=== PATIENT | female | born 1985 | race Hispanic/Latino ===

== ENCOUNTER → 2017-07-10 | Outpatient (CLI) | payer OTHER ==
[~2017-07-10] MED LIST: FERR-82 PO; IOPAMIDOL-370 100 ML VIAL IV ONE; ISOVUE-370 50ML VIAL IV ONE; RIVA20TA PO
== END | disposition home or self-care (01) ==
LOC: RAH 08:48
PROVIDERS: ATTEND Family Medicine
DX: I51.7 Cardiomegaly (principal); J90 Pleural effusion, not elsewhere classified; M47.895 Other spondylosis, thoracolumbar region
CPT/HCPCS: 71275; Q9967 ×2

== ENCOUNTER → 2017-07-19 | Outpatient (CLI) | payer OTHER ==
[~2017-07-19] MED LIST changes: -IOPAMIDOL-370 100 ML VIAL IV ONE; -ISOVUE-370 50ML VIAL IV ONE
== END | disposition home or self-care (01) ==
LOC: RAH 09:46
PROVIDERS: ATTEND Family Medicine
DX: I26.99 Other pulmonary embolism without acute cor pulmonale (principal)
CPT/HCPCS: 93306

== ENCOUNTER 2017-08-02 21:29 | Observation (INO) | payer OTHER ==
[~2017-08-02] VITALS: Ht 177.8 cm; Wt 99.8 kg
[2017-08-02 22:17] LABS: BASOPHILS % (AUTO) 0.3 % (0.0-5.0); EOSINOPHILS % (AUTO) 0.2 % (0.0-8.0); HEMATOCRIT 29.4 % (36-48); LYMPHOCYTES % (AUTO) 26.9 % (21.0-51.0); MEAN CORPUSCULAR HEMOGLOBIN 26.5 pg (27.0-33.0); MEAN CORPUSCULAR HGB CONC 32.8 g/dL (32.0-36.0); MEAN CORPUSCULAR VOLUME 80.7 fL (79-99); MONOCYTES % (AUTO) 7.6 % (3.0-13.0); PLATELET COUNT (AUTO) 306 K/uL (130-400); RED BLOOD CELL COUNT(AUTO) 3.64 MIL/uL (4.00-5.50); RED CELL DISTRIBUTION WIDTH 18.2 % (11.0-15.5); WHITE BLOOD COUNT (AUTO) 8.4 K/uL (4.8-10.8)
[2017-08-02 22:26] LABS: POTASSIUM 3.3 mmol/L (3.5-5.1)
[2017-08-02 22:28] LABS: INR 1.16 (0.85-1.15); PARTIAL THROMBOPLASTIN TIME 29.4 SEC (26.3-35.5); PROTHROMBIN TIME 12.1 SEC (9.6-11.6)
[2017-08-02 22:30] LABS: ALBUMIN 3.4 g/dL (3.5-5.0); BILIRUBIN,TOTAL 0.2 mg/dL (0.2-1.0)
[2017-08-02 23:36] LABS: APPEARANCE,URINE Clear (CLEAR); BILIRUBIN,URINE Negative (NEGATIVE); COLOR,URINE Yellow (YELLOW); GLUCOSE, URINE (UA) Negative (NEGATIVE); KETONES,URINE Negative (NEGATIVE); LEUKOCYTE ESTERASE ,URINE Negative (NEGATIVE); NITRATE,URINE Negative (NEGATIVE); OCCULT BLOOD,URINE Negative (NEGATIVE); PROTEIN,URINE Negative (NEGATIVE)
[2017-08-02 23:37] LABS: HCG,QUAL RESULT NEGATIVE (NEGATIVE)
[2017-08-02 23:50] LABS: BASOPHILS % (AUTO) 0.7 % (0.0-5.0); EOSINOPHILS % (AUTO) 0.4 % (0.0-8.0); HEMATOCRIT 27.2 % (36-48); LYMPHOCYTES % (AUTO) 23.1 % (21.0-51.0); MEAN CORPUSCULAR HEMOGLOBIN 26.6 pg (27.0-33.0); MEAN CORPUSCULAR HGB CONC 32.5 g/dL (32.0-36.0); MEAN CORPUSCULAR VOLUME 81.8 fL (79-99); MONOCYTES % (AUTO) 7.6 % (3.0-13.0); NEUTROPHILS % (AUTO) 68.2 % (40.0-77.0); PLATELET COUNT (AUTO) 264 K/uL (130-400); RED BLOOD CELL COUNT(AUTO) 3.32 MIL/uL (4.00-5.50); RED CELL DISTRIBUTION WIDTH 18.6 % (11.0-15.5)
[2017-08-03] VITALS (7 sets, daily range): BP systolic 96–121; BP diastolic 50–63
[2017-08-03] MEDS: DEXTROSE 5%-LACTATED RINGERS 1,000 ML IV SCH ×3 (01:57→17:28)
[2017-08-03] MEDS ORDERED: FERR-82 PO (04:39)
[2017-08-03] MEDS ORDERED: RIVA20TA PO (04:39)
[2017-08-03] MEDS ORDERED: HYDROCODONE/ACETAMINOPHEN 5/325 MG TAB ONE ×2 (04:42→04:43)
[2017-08-03] MEDS: IBUPROFEN 600 MG TABLET PO SCH (04:45)
[2017-08-03] MEDS ORDERED: HYDROCODONE/ACETAMINOPHEN 5/325 MG TAB PO ONE (04:45)
[2017-08-03 06:26] LABS: HEMATOCRIT 24.6 % (36-48)
[2017-08-03] MEDS ORDERED: RIVAROXABAN 20 MG TABLET PO SCH (09:45)
[2017-08-03 12:30] LABS: HEMATOCRIT 25.7 % (36-48)
[2017-08-03] MEDS ORDERED: DOCUSATE SODIUM 100 MG CAP PO SCH (15:45)
[2017-08-03] MEDS ORDERED: POTASSIUM CHLORIDE 10% ELIXIR 20 MEQ/15 ML UDCUP PO PRN (15:45)
[2017-08-03] MEDS ORDERED: POTASSIUM CHLORIDE 20MEQ/100ML 100 ML IV PRN (15:45)
[2017-08-03] MEDS ORDERED: LIDOCAINE HCL-MPF 1% 2ML VIAL IVP PRN (15:45)
[2017-08-03] MEDS: POTASSIUM CHLORIDE 20 MEQ ERTAB PO PRN ×2 (17:53→22:34)
[2017-08-03 18:17] LABS: HEMATOCRIT 24.6 % (36-48)
[2017-08-04] MEDS: POTASSIUM CHLORIDE 20 MEQ ERTAB PO PRN (00:03)
[2017-08-04 00:22] LABS: HEMATOCRIT 24.2 % (36-48)
[2017-08-04 03:00] VITALS: BP 104/62
[2017-08-04] MEDS: IBUPROFEN 600 MG TABLET PO SCH (04:45)
[2017-08-04 05:17] LABS: BASOPHILS % (AUTO) 0.9 % (0.0-5.0); EOSINOPHILS % (AUTO) 1.1 % (0.0-8.0); HEMATOCRIT 24.2 % (36-48); LYMPHOCYTES % (AUTO) 34.9 % (21.0-51.0); MEAN CORPUSCULAR HEMOGLOBIN 26.4 pg (27.0-33.0); MEAN CORPUSCULAR HGB CONC 32.2 g/dL (32.0-36.0); MEAN CORPUSCULAR VOLUME 81.9 fL (79-99); MONOCYTES % (AUTO) 6.3 % (3.0-13.0); NEUTROPHILS % (AUTO) 56.8 % (40.0-77.0); PLATELET COUNT (AUTO) 242 K/uL (130-400); RED BLOOD CELL COUNT(AUTO) 2.95 MIL/uL (4.00-5.50); RED CELL DISTRIBUTION WIDTH 18.5 % (11.0-15.5); WHITE BLOOD COUNT (AUTO) 5.5 K/uL (4.8-10.8)
[2017-08-04 05:25] LABS: CREATININE 0.7 mg/dL (0.5-1.5); POTASSIUM 4.1 mmol/L (3.5-5.1)
[2017-08-04] MEDS: DEXTROSE 5%-LACTATED RINGERS 1,000 ML IV SCH (06:21)
[2017-08-04] MEDS ORDERED: BISACODYL 10 MG SUPP.RECT RC ONE (07:00)
[2017-08-04 08:00] VITALS: BP 106/63
[2017-08-04] MEDS: DOCUSATE SODIUM 100 MG CAP PO SCH ×2 (08:27→21:35)
[2017-08-04] MEDS: FERROUS SULFATE 325 MG TABLET.DR PO SCH (08:27)
[2017-08-04] MEDS: ASCORBIC ACID 500 MG TAB PO SCH (08:28)
[2017-08-04] MEDS ORDERED: RIVAROXABAN 20 MG TABLET PO SCH (09:00)
[2017-08-04 12:00] VITALS: BP 113/66
[2017-08-04 12:20] LABS: HEMATOCRIT 27.4 % (36-48)
[2017-08-04 16:00] VITALS: BP 117/68
[2017-08-04] MEDS: RIVAROXABAN 10 MG TABLET PO SCH (17:09)
[2017-08-04 18:03] LABS: HEMATOCRIT 24.8 % (36-48)
[2017-08-04 19:00] VITALS: BP 108/70
[2017-08-04] MEDS ORDERED: RIVAROXABAN 10 MG TABLET PO SCH (20:15)
[2017-08-04 23:00] VITALS: BP 100/62
[2017-08-05 03:00] VITALS: BP 93/53
[2017-08-05 07:00] VITALS: BP 100/51
[2017-08-05] MEDS ORDERED: FERROUS SULFATE 325 MG TABLET.DR PO SCH (09:00)
[2017-08-05] MEDS: ASCORBIC ACID 500 MG TAB PO SCH (10:21)
[2017-08-05] MEDS: DOCUSATE SODIUM 100 MG CAP PO SCH (10:21)
[2017-08-05] MEDS: RIVAROXABAN 10 MG TABLET PO SCH (10:22)
[2017-08-05] MEDS: FERROUS SULFATE 325 MG TABLET.DR PO SCH (10:22)
[2017-08-05 11:00] VITALS: BP 107/55
[2017-08-05 12:00] LABS: HEMATOCRIT 26.9 % (36-48)
[2017-08-05 16:00] VITALS: BP 101/51
[2017-08-05] MEDS ORDERED: RIVAROXABAN 10 MG TABLET PO SCH (18:30)
== END 2017-08-05 19:35 | disposition home or self-care (01) ==
LOC: EDH 21:29 → EDHIP 08-03 00:09 → WSH 08-03 01:20 → 3BH 08-03 18:20
PROVIDERS: ADMIT Obstetrics & Gynecology; ATTEND Obstetrics & Gynecology
DX: D62 Acute posthemorrhagic anemia (principal); D25.9 Leiomyoma of uterus, unspecified; E66.01 Morbid (severe) obesity due to excess calories; I26.99 Other pulmonary embolism without acute cor pulmonale; Z86.711 Personal history of pulmonary embolism; Z86.718 Personal history of other venous thrombosis and embolism; Z79.01 Long term (current) use of anticoagulants
CPT/HCPCS: 36415 ×4; 76856; 80048; 80053; 81003; 81025; 85014 ×8; 85018 ×8; 85025 ×3; 85610; 85730; 86850; 86900; 86901; 86922; 93970; 96360; 96361 ×2; 99285; G0378 ×67; J3490

== ENCOUNTER 2017-11-23 18:12 | Emergency (ER) | payer OTHER ==
[2017-11-23] MEDS ORDERED: KETOROLAC TROMETHAMINE 30MG/ML ONE (19:25)
[2017-11-23] MEDS ORDERED: ACETAMINOPHEN-CODEINE ELIXIR 5 ML UDCUP ONE (19:26)
[2017-11-23 19:50] LABS: BASOPHILS % (AUTO) 0.5 % (0.0-5.0); EOSINOPHILS % (AUTO) 0.2 % (0.0-8.0); HEMATOCRIT 36.6 % (36-48); LYMPHOCYTES % (AUTO) 15.9 % (21.0-51.0); MEAN CORPUSCULAR HEMOGLOBIN 26.8 pg (27.0-33.0); MEAN CORPUSCULAR HGB CONC 33.1 g/dL (32.0-36.0); MEAN CORPUSCULAR VOLUME 80.9 fL (79-99); MONOCYTES % (AUTO) 5.5 % (3.0-13.0); NEUTROPHILS % (AUTO) 77.9 % (40.0-77.0); PLATELET COUNT (AUTO) 272 K/uL (130-400); RED BLOOD CELL COUNT(AUTO) 4.52 MIL/uL (4.00-5.50); RED CELL DISTRIBUTION WIDTH 17.1 % (11.0-15.5); WHITE BLOOD COUNT (AUTO) 10.1 K/uL (4.8-10.8)
[2017-11-23 19:51] LABS: APPEARANCE,URINE Clear (CLEAR); BILIRUBIN,URINE Negative (NEGATIVE); COLOR,URINE Yellow (YELLOW); GLUCOSE, URINE (UA) Negative (NEGATIVE); KETONES,URINE 15 mg/dL (NEGATIVE); LEUKOCYTE ESTERASE ,URINE Trace (NEGATIVE); NITRATE,URINE Negative (NEGATIVE); OCCULT BLOOD,URINE Negative (NEGATIVE); PROTEIN,URINE Negative (NEGATIVE); UROBILINOGEN,URINE 0.2 mg/dL (0.2-1.0)
[2017-11-23 20:04] LABS: BACTERIA,URINE Rare /HPF (None Seen); RBC,URINE 0-1 /HPF (0-1); SQUAMOUS EPITHELIAL CELL,UR Rare /HPF (0-2); WBC,URINE 0-1 /HPF (0-1)
[2017-11-23 20:21] LABS: CREATININE 0.8 mg/dL (0.5-1.5); POTASSIUM 3.8 mmol/L (3.5-5.1)
[2017-11-23 20:26] LABS: ALBUMIN 3.8 g/dL (3.5-5.0); BILIRUBIN,TOTAL 0.3 mg/dL (0.2-1.0)
== END 2017-11-23 21:42 | disposition home or self-care (01) ==
LOC: EDH 18:12
DX: D21.9 Benign neoplasm of connective and other soft tissue, unspecified (principal); R10.2 Pelvic and perineal pain
CPT/HCPCS: 36415; 76856; 80053; 81001; 85025; 96372; 99285; J1885

== ENCOUNTER 2017-12-23 11:30 | Inpatient (IN) | payer OTHER ==
[~2017-12-23] VITALS: Ht 177.8 cm; Wt 103.3 kg
[2017-12-24 14:01] VITALS: BP 119/55
[2017-12-24 14:08] LABS: BASOPHILS % (AUTO) 0.4 % (0.0-5.0); EOSINOPHILS % (AUTO) 0.8 % (0.0-8.0); HEMATOCRIT 35.3 % (36-48); LYMPHOCYTES % (AUTO) 26.8 % (21.0-51.0); MEAN CORPUSCULAR HEMOGLOBIN 26.9 pg (27.0-33.0); MEAN CORPUSCULAR HGB CONC 32.4 g/dL (32.0-36.0); MEAN CORPUSCULAR VOLUME 82.9 fL (79-99); MONOCYTES % (AUTO) 6.6 % (3.0-13.0); NEUTROPHILS % (AUTO) 65.4 % (40.0-77.0); NUCLEATED RED BLOOD CELLS 0.1 % (0.0-0.19); PLATELET COUNT (AUTO) 280 K/uL (130-400); RED BLOOD CELL COUNT(AUTO) 4.25 MIL/uL (4.00-5.50); RED CELL DISTRIBUTION WIDTH 17.1 % (11.0-15.5); WHITE BLOOD COUNT (AUTO) 6.4 K/uL (4.8-10.8)
[2018-01-03] VITALS (22 sets, daily range): BP systolic 112–148; BP diastolic 52–94
[2018-01-03] MEDS ORDERED: LACTATED RINGERS 1000ML 1,000 ML IV ONE (06:59)
[2018-01-03] MEDS: CEFAZOLIN SODIUM 1 GM VIAL IVP SCH ×3 (07:00→16:54)
[2018-01-03] MEDS ORDERED: MIDAZOLAM HCL 1 MG/ML 2ML VIAL ONE (07:56)
[2018-01-03] MEDS ORDERED: LIDOCAINE PF 2% 5ML ABBOJECT ONE (08:23)
[2018-01-03] MEDS ORDERED: ROCURONIUM 10MG/1ML SYR 10 MG/ML ML ONE (08:24)
[2018-01-03] MEDS ORDERED: PROPOFOL 10 MG/ML 20ML VIAL IV ONE (08:24)
[2018-01-03] MEDS ORDERED: FENTANYL CITRATE PF 50 MCG/1 ML 5ML AMP IV ONE ×3 (08:24→09:02)
[2018-01-03] MEDS ORDERED: ONDANSETRON HCL 4 MG/2 ML VIAL ONE (08:52)
[2018-01-03] MEDS ORDERED: DEXAMETHASONE SOD PHOSPHATE 10MG/ML 1ML VIAL ONE (08:52)
[2018-01-03] MEDS ORDERED: FENTANYL CITRATE PF 50 MCG/1 ML 2ML VIAL ONE (09:35)
[2018-01-03] MEDS ORDERED: NEOSTIGMINE 5MG/5ML SYR IV ONE (09:39)
[2018-01-03] MEDS ORDERED: GLYCOPYRROLATE 1 MG/5 ML SYRINGE ONE (09:39)
[2018-01-03] MEDS ORDERED: HYDROMORPHONE 1 MG/1 ML AMP ONE ×2 (10:08→10:31)
[2018-01-03] MEDS ORDERED: BISACODYL 10 MG SUPP.RECT RC PRN (11:15)
[2018-01-03] MEDS ORDERED: ONDANSETRON HCL 4 MG/2 ML VIAL IVP PRN (11:15)
[2018-01-03] MEDS ORDERED: MEPERIDINE-PF 75 MG/ML SYG IM PRN (11:15)
[2018-01-03] MEDS ORDERED: PROMETHAZINE HCL 25 MG/ML 1ML AMPULE IM PRN ×2 (11:15)
[2018-01-03] MEDS ORDERED: ACETAMINOPHEN-CODEINE 300/30MG TAB PO PRN (11:15)
[2018-01-03] MEDS: DEXTROSE 5%-LACTATED RINGERS 1,000 ML IV PRN (18:42)
[2018-01-03] MEDS: SIMETHICONE 80 MG TAB.CHEW PO PRN (22:30)
[2018-01-03] MEDS: DOCUSATE SODIUM 100 MG CAP PO PRN (22:30)
[2018-01-04] MEDS: CEFAZOLIN SODIUM 1 GM VIAL IVP SCH (00:23)
[2018-01-04] MEDS: DEXTROSE 5%-LACTATED RINGERS 1,000 ML IV PRN (02:27)
[2018-01-04] MEDS: IBUPROFEN 600 MG TABLET PO PRN ×3 (02:28→18:33)
[2018-01-04 04:25] VITALS: BP 102/54
[2018-01-04 06:41] LABS: HEMATOCRIT 27.2 % (36-48); MEAN CORPUSCULAR HEMOGLOBIN 27.7 pg (27.0-33.0); MEAN CORPUSCULAR HGB CONC 33.1 g/dL (32.0-36.0); MEAN CORPUSCULAR VOLUME 83.6 fL (79-99); PLATELET COUNT (AUTO) 242 K/uL (130-400); RED BLOOD CELL COUNT(AUTO) 3.25 MIL/uL (4.00-5.50); RED CELL DISTRIBUTION WIDTH 15.9 % (11.0-15.5); WHITE BLOOD COUNT (AUTO) 7.9 K/uL (4.8-10.8)
[2018-01-04 07:45] VITALS: BP 111/52
[2018-01-04] MEDS: DOCUSATE SODIUM 100 MG CAP PO PRN ×2 (09:15→21:56)
[2018-01-04] MEDS: SIMETHICONE 80 MG TAB.CHEW PO PRN ×3 (09:15→21:56)
[2018-01-04 11:44] VITALS: BP 106/53
[2018-01-04 15:53] VITALS: BP 104/58
[2018-01-04 20:31] VITALS: BP 118/58
[2018-01-05 00:01] VITALS: BP 100/50
[2018-01-05] MEDS: IBUPROFEN 600 MG TABLET PO PRN ×2 (03:42→09:09)
[2018-01-05 04:08] VITALS: BP 112/59
[2018-01-05 07:54] VITALS: BP 111/56
[2018-01-05] MEDS: SIMETHICONE 80 MG TAB.CHEW PO PRN (09:08)
[2018-01-05] MEDS: DOCUSATE SODIUM 100 MG CAP PO PRN (09:08)
== END 2018-01-05 11:25 | disposition home or self-care (01) | DRG 743 ==
LOC: EDSTATUS 12-24 12:00 → DAHIP 01-03 06:34 → WSH 01-03 11:10
PROVIDERS: ADMIT Obstetrics & Gynecology; ATTEND Obstetrics & Gynecology
PROC: 0UDB8ZZ Extraction of Endometrium, Via Natural or Artificial Opening Endoscopic (ICD-10-PCS; principal; 2018-01-03 08:25)
PROC: 0UB90ZZ Excision of Uterus, Open Approach (ICD-10-PCS; 2018-01-03 08:25)
DX: D25.9 Leiomyoma of uterus, unspecified (principal); N92.0 Excessive and frequent menstruation with regular cycle
CPT/HCPCS: 36415; 84702; 85025; 85027; 86850; 86900; 86901; 88305; A4344; A4355; J0690; J1100; J1170; J2001; J2175; J2250; J2405; J2550; J2704; J2710; J3010; J3490; J7030; J7120